=== PATIENT | female | born 1980 | race Caucasian/White ===

== ENCOUNTER 2016-02-21 21:57 | Emergency (ER) | payer BC, MEDICAID ==
--- NOTE | 2016-02-21 22:13 | Emergency Department Record ---
History of Present Illness - General Chief complaint: Abscess Stated complaint: SORE ON UPPER ABD Time Seen by Provider: 02/21/16 22:12 Source: Patient Mode of Arrival: Ambulatory Limitations: No limitations - History of Present Illness Initial comments: The patient is here due to a painful rash on her mid abdomen for 3 days. She denies any trauma, fever, or vomiting. She has had one episode of MRSA in the past. MD complaint: Abscess/boil, Rash Onset/Timin -: Days(s) Hx Tetanus Toxoid Vaccination: Yes Year of Tetanus Vaccination: unknown Severity scale (1-10): 6 Quality: Aching Improves with: None Worsens with: Palpation Treatments Prior to Arrival: Attempted to drain pus at home - Related Data Home Medications Medication Instructions Recorded Confirmed Last Taken Amitriptyline HCl [Elavil] 125 mg PO DAILY 12/09/14 02/21/16 08/29/15 25 MG Levothyroxine Sodium [Synthroid] 150 mcg PO DAILY 12/09/14 02/21/16 08/29/15 150 MCG Metformin HCl [Glucophage Ir] 500 mg PO BID 12/09/14 02/21/16 08/29/15 500 MG Topiramate [Topamax] 150 mg PO DAILY 12/09/14 02/21/16 08/29/15 150 MG Venlafaxine HCl [Effexor Xr] 225 mg PO DAILY 12/09/14 02/21/16 08/29/15 225 MG Ranitidine HCl [Zantac] 75 mg PO DAILY 12/12/14 02/21/16 08/29/15 75 MG Buspirone HCl [Buspar] 15 mg PO BID 04/16/15 02/21/16 08/29/15 15 MG Sumatriptan Succinate [Imitrex] 50 mg PO DAILY PRN 04/16/15 02/21/16 08/29/15 50 MG Previous Rx's Medication Instructions Recorded Ondansetron HCl [Zofran] 4 mg PO TID #7 tablet 08/30/15 Clindamycin HCl [Cleocin HCl] 300 mg PO QID #28 capsule 02/21/16 Naproxen [Naprosyn] 500 mg PO BID #14 tablet. 02/21/16 Allergies Allergy/AdvReac Type Severity Reaction Status Date / Time cephalexin monohydrate Allergy Intermediate HIVES Verified 08/29/15 22:20 [From Keflex] doxycycline Allergy Intermediate HIVES Verified 08/29/15 22:20 Latex, Natural Rubber Allergy Intermediate RASH Verified 08/29/15 22:20 Travel Screening - Travel/Exposure Within Last 30 Days Have you traveled within the last 30 days?: No Review of Systems Constitutional: Denies: Chills, Fever, Other Eyes: Denies: Eye discharge ENT: Denies: Congestion Respiratory: Denies: Cough, Dyspnea Past Medical History - SOCIAL HISTORY Smoking Status: Current every day smoker Alcohol Use: None Drug Use: None - RESPIRATORY Hx Respiratory Disorders: No - CARDIOVASCULAR Hx Cardio Disorders: No - NEURO Hx Neuro Disorders: Yes Hx of Migraines: Yes 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 - GI Hx GI Disorders: Yes Hx Abdominal Pain: Yes (with gallbladder) Hx Reflux: Yes (just recently with gallbladder) Hx Nausea/Vomiting: Yes - Hx Genitourinary Disorders: Yes Comment:: polycystic ovarian disease - ENDOCRINE Hx Endocrine Disorders: Yes Hx Diabetes: Yes (type 2) Hx Thyroid Disease: Yes (hypo) - MUSCULOSKELETAL Hx Musculoskeletal Disorders: No - PSYCH Hx Psych Problems: Yes Hx Anxiety: Yes Hx Depression: Yes - HEMATOLOGY/ONCOLOGY Hx Hematology/Oncology Disorders: No Family Medical History Any Significant Family History?: Yes Hx Cancer: Grandparents Hx Diabetes: Grandparents Hx Heart Disease: Father, Grandparents Physical Exam - General General Appearance: Alert, Oriented x3, Cooperative, No acute distress - Head Head exam: Atraumatic, Normocephalic, Normal inspection - Eye Eye exam: Normal appearance, PERRL - Neck Neck exam: Normal inspection, Full ROM. negative: Tenderness - Respiratory Respiratory exam: Normal lung sounds bilaterally. negative: Respiratory distress - Cardiovascular Cardiovascular Exam: Regular rate, Normal rhythm, Normal heart sounds - GI/Abdominal GI/Abdominal exam: Soft, Normal bowel sounds, Other (There is a 5 x 5 cm area of erythema and mild tenderness in the center over the mid abdominal skin area. There is no fluctuance or drainage from the center. It appears to be a probable MRSA wound but is clearly not ready for I and D.). negative: Guarding, Rigid, Tenderness - Extremities Extremities exam: Normal inspection, Full ROM, Normal capillary refill. negative: Tenderness Image of Full Body: 1 - Area of erythema. Course Vital Signs 02/21/16 22:04 Temperature 97.7 F Pulse Rate [ 103 H Pulse Ox Probe] Respiratory 18 Rate Blood Pressure 135/84 [Left Arm] Pulse Ox 98 - Reevaluation(s) Reevaluation #1: I did discuss with the patient the need for using warm compresses to the area and to take the Abx's and pain medicines. She is to see her PCP if not better early next week or to return to the ER if worse. 02/21/16 22:28 Disposition Disposition: Discharge Clinical Impression: Skin infection Disposition: Home, Self-Care Condition: (1) Good Instructions: Abscess (ED) Additional Instructions: Please use warm compresses on the affected area during the day when possible. Please take the Naprosyn and Clindamycin as directed. Please see your PCP for recheck if not better in 3 days. Return to the ER for any increased pain, swelling, or fever. Prescriptions: Clindamycin HCl [Cleocin HCl] 300 mg PO QID #28 capsule Naproxen [Naprosyn] 500 mg PO BID #14 tablet.dr Forms: Patient Portal Access Time of Disposition: 22:20
[2016-02-21] MEDS ORDERED: CLINDAMYCIN 150 MG CAP PO ONE (22:16)
[2016-02-21] MEDS ORDERED: NAPROXEN 250 MG TABLET PO ONE (22:17)
== END 2016-02-21 22:31 | disposition home or self-care (01) ==
LOC: ER 21:57
DX: L02.211 Cutaneous abscess of abdominal wall (principal); Z86.14 Personal history of Methicillin resistant Staphylococcus aureus infection
CPT/HCPCS: 99282

== ENCOUNTER 2016-05-03 12:03 | Emergency (ER) | payer MEDICAID ==
[2016-05-03] MEDS ORDERED: IPRATROPIUM/ALBUTEROL (0.5MG/3MG) NEB INH ONE (12:34)
[2016-05-03 12:57] LABS: BASO % 0.4 % (0-6); GRAN % 62.6 % (47-80); HEMATOCRIT 44.3 % (35.0-47.0); HEMOGLOBIN 15.6 gm/dl (11.6-16.0); LYMPH % 25.4 % (16-45); MEAN CELL VOLUME 80.8 fl (81-97); MEAN CORPUSCULAR HGB CONC 35.2 g/dl (32-36); MONO % 7.6 % (0-9); PLATELET COUNT 242 K/uL (130-400); RED BLOOD COUNT 5.48 M/uL (3.80-5.40); RED CELL DISTRIBUTION WIDTH 13.4 % (11.5-14.5); WHITE BLOOD COUNT W/O DIFF 7.5 K/uL (4.2-12.2)
[2016-05-03 13:08] LABS: ANION GAP 4.3 (7-16); BLOOD UREA NITROGEN 6 mg/dL (7-17); CARBON DIOXIDE 21.7 mmol/L (22-30); CREATININE 0.7 mg/dL (0.52-1.04); EST GLOMERULAR FILTRATION RATE > 60 ml/min; GLUCOSE,RANDOM 105 mg/dL (70-110); MEAN CORPUSCULAR HEMOGLOBIN 28.4 pg (27-33)
[2016-05-03 13:10] LABS: INFLUENZA A NEGATIVE (NEGATIVE); INFLUENZA B NEGATIVE (NEGATIVE)
--- NOTE | 2016-05-03 13:19 | Emergency Department Record ---
History of Present Illness - General Chief Complaint: Chest Pain Stated Complaint: CHEST HEAVINESS Time Seen by Provider: 05/03/16 12:29 Source: Patient Mode of Arrival: Ambulatory Limitations: No limitations - History of Present Illness Initial Comments: pt has had a cough, heaviness in her chest, congestion for a week. now she is losing her voice. no fevers. cough is prod yellow MD Complaint: Other Onset/Timin -: Days(s) Onset: During exertion, During rest Pain Location: Epigastric Severity: Moderate Severity scale (1-10): 1 Quality: Aching Consistency: Constant Improves With: Nothing Worsens With: Nothing Anginal Symptoms: Dyspnea Other Symptoms: Cough Treatments Prior to Arrival: None - Related Data Home Medications Medication Instructions Recorded Confirmed Last Taken Amitriptyline HCl [Elavil] 125 mg PO DAILY 12/09/14 05/03/16 1 Day Ago Levothyroxine Sodium [Synthroid] 150 mcg PO DAILY 12/09/14 05/03/16 1 Day Ago Metformin HCl [Glucophage Ir] 500 mg PO BID 12/09/14 05/03/16 1 Day Ago Topiramate [Topamax] 150 mg PO DAILY 12/09/14 05/03/16 1 Day Ago Venlafaxine HCl [Effexor Xr] 225 mg PO DAILY 12/09/14 05/03/16 1 Day Ago Ranitidine HCl [Zantac] 75 mg PO DAILY 12/12/14 05/03/16 1 Day Ago Buspirone HCl [Buspar] 15 mg PO BID 04/16/15 05/03/16 1 Day Ago Sumatriptan Succinate [Imitrex] 50 mg PO DAILY PRN 04/16/15 05/03/16 1 Day Ago Previous Rx's Medication Instructions Recorded Ondansetron HCl [Zofran] 4 mg PO TID #7 tablet 08/30/15 Naproxen [Naprosyn] 500 mg PO BID #14 tablet. 02/21/16 Azithromycin [Zithromax] 250 mg PO DAILY #6 tab 05/03/16 Allergies Allergy/AdvReac Type Severity Reaction Status Date / Time cephalexin monohydrate Allergy Intermediate HIVES Verified 05/03/16 12:18 [From Keflex] doxycycline Allergy Intermediate HIVES Verified 05/03/16 12:18 Latex, Natural Rubber Allergy Intermediate RASH Verified 05/03/16 12:18 Travel Screening - Travel/Exposure Within Last 30 Days Have you traveled within the last 30 days?: No - Travel/Exposure Within Last Year Have you traveled outside the [place] in the last year?: No - Additonal Travel Details Have you been exposed to anyone with a communicable illness?: No - Travel Symptoms Symptom Screening: None Review of Systems Reviewed: No additional complaints except as noted below Constitutional: Reports: As per HPI. Denies: Chills, Fever, Malaise, Night sweats, Weakness, Weight change Eyes: Reports: As per HPI. Denies: Eye discharge, Eye pain, Photophobia, Vision change ENT: Reports: As per HPI. Denies: Congestion, Dental pain, Ear pain, Epistaxis , Hearing loss, Throat pain Respiratory: Reports: As per HPI. Denies: Cough, Dyspnea, Hemoptysis, Stridor, Wheezes Cardiovascular: Reports: As per HPI. Denies: Arrhythmia, Chest pain, Dyspnea on exertion, Edema, Murmurs, Orthopnea, Palpitations, Paroxysmal nocturnal dyspnea, Rheumatic Fever, Syncope Endocrine: Reports: As per HPI. Denies: Fatigue, Heat or cold intolerance, Polydipsia, Polyuria Gastrointestinal: Reports: As per HPI. Denies: Abdominal pain, Constipation, Diarrhea, Hematemesis, Hematochezia, Melena, Nausea, Vomiting Genitourinary: Reports: As per HPI. Denies: Abnormal menses, Discharge, Dyspareunia, Dysuria, Frequency, Hematuria, Incontinence, Retention, Urgency Musculoskeletal: Reports: As per HPI. Denies: Arthralgia, Back pain, Gout, Joint swelling, Myalgia, Neck pain Skin: Reports: As per HPI. Denies: Bruising, Change in color, Change in hair/ nails, Lesions, Pruritus, Rash Neurological: Reports: As per HPI. Denies: Abnormal gait, Confusion, Headache, Numbness, Paresthesias, Seizure, Tingling, Tremors, Vertigo, Weakness Psychiatric: Reports: As per HPI. Denies: Anxiety, Auditory hallucinations, Depression, Homicidal thoughts, Suicidal thoughts, Visual hallucinations Hematological/Lymphatic: Reports: As per HPI. 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 - GI Hx GI Disorders: Yes Hx Abdominal Pain: Yes (with gallbladder) Hx Reflux: Yes (just recently with gallbladder) Hx Nausea/Vomiting: Yes - Hx Genitourinary Disorders: Yes Comment:: polycystic ovarian disease - ENDOCRINE Hx Endocrine Disorders: Yes Hx Diabetes: Yes (type 2) Hx Thyroid Disease: Yes (hypo) - MUSCULOSKELETAL Hx Musculoskeletal Disorders: No - PSYCH Hx Psych Problems: Yes Hx Anxiety: Yes Hx Depression: Yes - HEMATOLOGY/ONCOLOGY Hx Hematology/Oncology Disorders: No Family Medical History Any Significant Family History?: Yes Hx Cancer: Grandparents Hx Diabetes: Grandparents Hx Heart Disease: Father, Grandparents Physical Exam - General General Appearance: Alert, Oriented x3, Cooperative, Mild distress - Head Head exam: Normal inspection - Eye Eye exam: Normal appearance, PERRL, EOMI Pupils: Normal accommodation - ENT ENT exam: Normal exam, Mucous membranes moist, Normal external ear exam, Normal orophraynx Ear exam: Normal external inspection. negative: External canal tenderness Nasal Exam: Normal inspection. negative: Discharge, Sinus tenderness Mouth exam: Normal external inspection, Tongue normal Teeth exam: Normal inspection. negative: Dental caries Throat exam: Normal inspection. negative: Tonsillar erythema, Tonsillar exudate - Neck Neck exam: Normal inspection, Full ROM. negative: Tenderness - Respiratory Respiratory exam: Normal lung sounds bilaterally, Wheezes (slight). negative: Respiratory distress - Cardiovascular Cardiovascular Exam: Regular rate, Normal rhythm, Normal heart sounds - GI/Abdominal GI/Abdominal exam: Soft, Normal bowel sounds. negative: Tenderness - Rectal Rectal exam: Deferred - exam: Deferred - Extremities Extremities exam: Normal inspection, Full ROM, Normal capillary refill. negative: Tenderness - Back Back exam: Reports: Normal inspection, Full ROM. Denies: Muscle spasm, Rash noted, Tenderness - Neurological Neurological exam: Alert, CN II-XII intact, Normal gait, Oriented X3 - Psychiatric Psychiatric exam: Normal affect, Normal mood - Skin Skin exam: Dry, Intact, Normal color, Warm Course Vital Signs 05/03/16 12:12 Temperature 97.9 F Pulse Rate 87 Respiratory 20 Rate Blood Pressure 148/106 Pulse Ox 98 Medical Decision Making - Lab Data Result diagrams: 05/03/16 12:47 05/03/16 12:47 Lab Results 05/03/16 05/03/16 05/03/16 Range/Units 12:47 12:47 12:47 WBC 7.5 (4.2-12.2) K/uL RBC 5.48 H (3.80-5.40) M/uL Hgb 15.6 (11.6-16.0) gm/dl Hct 44.3 (35.0-47.0) % MCV 80.8 L (81-97) fl MCH 28.4 (27-33) pg MCHC 35.2 (32-36) g/dl RDW 13.4 (11.5-14.5) % Plt Count 242 (130-400) K/uL MPV 10.0 (7.4-10.4) fl Gran % 62.6 (47-80) % Lymphocytes % 25.4 (16-45) % Monocytes % 7.6 (0-9) % Eosinophils % 4.0 (0-6) % Basophils % 0.4 (0-6) % Sodium 139 (136-145) mmol/L Potassium 3.5 (3.5-5.1) mmol/L Chloride 113 H (98-107) mmol/L Carbon Dioxide 21.7 L (22-30) mmol/L Anion Gap 4.3 L (7-16) BUN 6 L (7-17) mg/dL Creatinine 0.7 (0.52-1.04) mg/dL Estimated GFR > 60 ml/min Random Glucose 105 (70-110) mg/dL Calcium 8.8 (8.5-10.1) mg/dL Influenza Type A Ag Negative (NEGATIVE) Influenza Type B Ag Negative (NEGATIVE) Disposition Disposition: Discharge Clinical Impression: Bronchitis Disposition: Home, Self-Care Condition: (1) Good Instructions: Acute Bronchitis (ED) Additional Instructions: follow up with family doctor. return sooner if worse Prescriptions: Azithromycin [Zithromax] 250 mg PO DAILY #6 tab Forms: Patient Portal Access
[2016-05-03 13:20] LABS: TROPONIN I < 0.012 ng/mL (0.00-0.034)
--- NOTE | 2016-05-03 14:12 | Emergency Department Record ---
History of Present Illness - General Chief Complaint: Chest Pain Stated Complaint: CHEST HEAVINESS Time Seen by Provider: 05/03/16 12:29 Source: Patient Mode of Arrival: Ambulatory Limitations: No limitations - History of Present Illness Onset/Timin -: Days(s) Onset: During exertion, During rest Pain Location: Epigastric Severity: Moderate Severity scale (1-10): 1 Quality: Aching Consistency: Constant Improves With: Nothing Worsens With: Nothing Anginal Symptoms: Dyspnea Other Symptoms: Cough Treatments Prior to Arrival: None - Related Data Home Medications Medication Instructions Recorded Confirmed Last Taken Amitriptyline HCl [Elavil] 125 mg PO DAILY 12/09/14 05/03/16 1 Day Ago Levothyroxine Sodium [Synthroid] 150 mcg PO DAILY 12/09/14 05/03/16 1 Day Ago Metformin HCl [Glucophage Ir] 500 mg PO BID 12/09/14 05/03/16 1 Day Ago Topiramate [Topamax] 150 mg PO DAILY 12/09/14 05/03/16 1 Day Ago Venlafaxine HCl [Effexor Xr] 225 mg PO DAILY 12/09/14 05/03/16 1 Day Ago Ranitidine HCl [Zantac] 75 mg PO DAILY 12/12/14 05/03/16 1 Day Ago Buspirone HCl [Buspar] 15 mg PO BID 04/16/15 05/03/16 1 Day Ago Sumatriptan Succinate [Imitrex] 50 mg PO DAILY PRN 04/16/15 05/03/16 1 Day Ago Previous Rx's Medication Instructions Recorded Ondansetron HCl [Zofran] 4 mg PO TID #7 tablet 08/30/15 Naproxen [Naprosyn] 500 mg PO BID #14 tablet. 02/21/16 Azithromycin [Zithromax] 250 mg PO DAILY #6 tab 05/03/16 Allergies Allergy/AdvReac Type Severity Reaction Status Date / Time cephalexin monohydrate Allergy Intermediate HIVES Verified 05/03/16 12:18 [From Keflex] doxycycline Allergy Intermediate HIVES Verified 05/03/16 12:18 Latex, Natural Rubber Allergy Intermediate RASH Verified 05/03/16 12:18 Travel Screening - Travel/Exposure Within Last 30 Days Have you traveled within the last 30 days?: No - Travel/Exposure Within Last Year Have you traveled outside the [place] in the last year?: No - Additonal Travel Details Have you been exposed to anyone with a communicable illness?: No - Travel Symptoms Symptom Screening: None Review of Systems Constitutional: Reports: As per HPI. Denies: Chills, Fever, Malaise, Night sweats, Weakness, Weight change Eyes: Reports: As per HPI. Denies: Eye discharge, Eye pain, Photophobia, Vision change ENT: Reports: As per HPI. Denies: Congestion, Dental pain, Ear pain, Epistaxis , Hearing loss, Throat pain Respiratory: Reports: As per HPI. Denies: Cough, Dyspnea, Hemoptysis, Stridor, Wheezes Cardiovascular: Reports: As per HPI. Denies: Arrhythmia, Chest pain, Dyspnea on exertion, Edema, Murmurs, Orthopnea, Palpitations, Paroxysmal nocturnal dyspnea, Rheumatic Fever, Syncope Endocrine: Reports: As per HPI. Denies: Fatigue, Heat or cold intolerance, Polydipsia, Polyuria Gastrointestinal: Reports: As per HPI. Denies: Abdominal pain, Constipation, Diarrhea, Hematemesis, Hematochezia, Melena, Nausea, Vomiting Genitourinary: Reports: As per HPI. Denies: Abnormal menses, Discharge, Dyspareunia, Dysuria, Frequency, Hematuria, Incontinence, Retention, Urgency Musculoskeletal: Reports: As per HPI. Denies: Arthralgia, Back pain, Gout, Joint swelling, Myalgia, Neck pain Skin: Reports: As per HPI. Denies: Bruising, Change in color, Change in hair/ nails, Lesions, Pruritus, Rash Neurological: Reports: As per HPI. Denies: Abnormal gait, Confusion, Headache, Numbness, Paresthesias, Seizure, Tingling, Tremors, Vertigo, Weakness Psychiatric: Reports: As per HPI. Denies: Anxiety, Auditory hallucinations, Depression, Homicidal thoughts, Suicidal thoughts, Visual hallucinations Hematological/Lymphatic: Reports: As per HPI. 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 - GI Hx GI Disorders: Yes Hx Abdominal Pain: Yes (with gallbladder) Hx Reflux: Yes (just recently with gallbladder) Hx Nausea/Vomiting: Yes - Hx Genitourinary Disorders: Yes Comment:: polycystic ovarian disease - ENDOCRINE Hx Endocrine Disorders: Yes Hx Diabetes: Yes (type 2) Hx Thyroid Disease: Yes (hypo) - MUSCULOSKELETAL Hx Musculoskeletal Disorders: No - PSYCH Hx Psych Problems: Yes Hx Anxiety: Yes Hx Depression: Yes - HEMATOLOGY/ONCOLOGY Hx Hematology/Oncology Disorders: No Family Medical History Any Significant Family History?: Yes Hx Cancer: Grandparents Hx Diabetes: Grandparents Hx Heart Disease: Father, Grandparents Physical Exam - General Limitations: No limitations Course Vital Signs 05/03/16 12:12 Temperature 97.9 F Pulse Rate 87 Respiratory 20 Rate Blood Pressure 148/106 Pulse Ox 98 - Reevaluation(s) Reevaluation #1: 05/03/16 14:11 pt is no longer taking zofran Medical Decision Making - Lab Data Result diagrams: 05/03/16 12:47 05/03/16 12:47 Lab Results 05/03/16 05/03/16 05/03/16 Range/Units 12:47 12:47 12:47 WBC 7.5 (4.2-12.2) K/uL RBC 5.48 H (3.80-5.40) M/uL Hgb 15.6 (11.6-16.0) gm/dl Hct 44.3 (35.0-47.0) % MCV 80.8 L (81-97) fl MCH 28.4 (27-33) pg MCHC 35.2 (32-36) g/dl RDW 13.4 (11.5-14.5) % Plt Count 242 (130-400) K/uL MPV 10.0 (7.4-10.4) fl Gran % 62.6 (47-80) % Lymphocytes % 25.4 (16-45) % Monocytes % 7.6 (0-9) % Eosinophils % 4.0 (0-6) % Basophils % 0.4 (0-6) % Sodium 139 (136-145) mmol/L Potassium 3.5 (3.5-5.1) mmol/L Chloride 113 H (98-107) mmol/L Carbon Dioxide 21.7 L (22-30) mmol/L Anion Gap 4.3 L (7-16) BUN 6 L (7-17) mg/dL Creatinine 0.7 (0.52-1.04) mg/dL Estimated GFR > 60 ml/min Random Glucose 105 (70-110) mg/dL Calcium 8.8 (8.5-10.1) mg/dL Troponin I < 0.012 (0.00-0.034) ng/mL Influenza Type A Ag Negative (NEGATIVE) Influenza Type B Ag Negative (NEGATIVE) Disposition Clinical Impression: Bronchitis Disposition: Home, Self-Care Condition: (1) Good Instructions: Acute Bronchitis (ED) Additional Instructions: follow up with family doctor. return sooner if worse Prescriptions: Azithromycin [Zithromax] 250 mg PO DAILY #6 tab Forms: Patient Portal Access
--- NOTE | 2016-05-07 10:45 | RADIOLOGY REPORT ---
EXAM: CHEST, TWO VIEWS HISTORY: CHEST PRESSURE AND HOARSENESS. TECHNIQUE: Upright PA and lateral views of the chest were obtained. Comparison: None. FINDINGS: The cardiomediastinal silhouette is normal in size and configuration. The pulmonary vasculature is nondilated. The lungs and pleural spaces are clear. The osseous structures are intact. IMPRESSION: NO RADIOGRAPHIC EVIDENCE OF ACUTE CARDIOPULMONARY DISEASE. JOB NUMBER: [id number] MTDD
== END 2016-05-03 14:21 | disposition home or self-care (01) ==
LOC: ER 12:03
DX: R07.89 Other chest pain (principal); J20.9 Acute bronchitis, unspecified; R06.00 Dyspnea, unspecified; R10.13 Epigastric pain; F17.210 Nicotine dependence, cigarettes, uncomplicated
CPT/HCPCS: 71020; 80048; 84484; 85025; 87400; 93005; 93010; 94640; 99284

== ENCOUNTER 2016-05-17 21:08 | Emergency (ER) | payer MEDICAID ==
--- NOTE | 2016-05-17 21:32 | Emergency Department Record ---
History of Present Illness - General Chief complaint: ENT Stated complaint: SORE THROAT Time Seen by Provider: 05/17/16 21:26 Source: Patient Mode of Arrival: Ambulatory Limitations: No limitations - History of Present Illness Initial comments: 35 yo female presents to ED with a CC of sore throat x 1 day, denies fever, but reports chills and non-productive cough. Patient reports recent contact with a family member diagnosed with strep throat. Patient denies health problems at her baseline. MD complaint: Sore throat Onset/Timin -: Days(s) Severity: Moderate Quality: Aching Consistency: Constant Improves with: None Worsens with: None Associated Symptoms: Sore throat - Related Data Home Medications Medication Instructions Recorded Confirmed Last Taken Amitriptyline HCl [Elavil] 125 mg PO DAILY 12/09/14 05/17/16 1 Day Ago Levothyroxine Sodium [Synthroid] 150 mcg PO DAILY 12/09/14 05/17/16 1 Day Ago Metformin HCl [Glucophage Ir] 500 mg PO BID 12/09/14 05/17/16 1 Day Ago Topiramate [Topamax] 150 mg PO DAILY 12/09/14 05/17/16 1 Day Ago Venlafaxine HCl [Effexor Xr] 225 mg PO DAILY 12/09/14 05/17/16 1 Day Ago Ranitidine HCl [Zantac] 75 mg PO DAILY 12/12/14 05/17/16 1 Day Ago Buspirone HCl [Buspar] 15 mg PO BID 04/16/15 05/17/16 1 Day Ago Sumatriptan Succinate [Imitrex] 50 mg PO DAILY PRN 04/16/15 05/17/16 1 Day Ago Ondansetron HCl [Zofran] 4 mg PO TID PRN 05/17/16 05/17/16 Unknown Allergies Allergy/AdvReac Type Severity Reaction Status Date / Time cephalexin monohydrate Allergy Intermediate HIVES Verified 05/03/16 12:18 [From Keflex] doxycycline Allergy Intermediate HIVES Verified 05/03/16 12:18 Latex, Natural Rubber Allergy Intermediate RASH Verified 05/03/16 12:18 Review of Systems Constitutional: Reports: Chills. Denies: Fever, Malaise, Night sweats Eyes: Denies: Eye discharge, Eye pain ENT: Reports: Congestion. Denies: Ear pain, Epistaxis Respiratory: Reports: Cough. Denies: Hemoptysis Cardiovascular: Denies: Chest pain, Dyspnea on exertion Endocrine: Denies: Fatigue, Heat or cold intolerance Gastrointestinal: Denies: Abdominal pain, Nausea, Vomiting Genitourinary: Denies: Dysuria, Frequency, Hematuria Musculoskeletal: Denies: Arthralgia, Back pain, Gout, Joint swelling Skin: Denies: Bruising, Change in color, Change in hair/nails Neurological: Denies: Abnormal gait, Confusion, Headache, Seizure Psychiatric: Denies: Anxiety Hematological/Lymphatic: Denies: Anemia, Blood Clots Past Medical History - SOCIAL HISTORY Smoking Status: Current every day smoker Drug Use: None - RESPIRATORY Hx Respiratory Disorders: No - CARDIOVASCULAR Hx Cardio Disorders: No - NEURO Hx Neuro Disorders: Yes Hx of Migraines: Yes 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 - GI Hx GI Disorders: Yes Hx Abdominal Pain: Yes (with gallbladder) Hx Reflux: Yes (just recently with gallbladder) Hx Nausea/Vomiting: Yes - Hx Genitourinary Disorders: Yes Comment:: polycystic ovarian disease - ENDOCRINE Hx Endocrine Disorders: Yes Hx Diabetes: Yes (type 2) Hx Thyroid Disease: Yes (hypo) - MUSCULOSKELETAL Hx Musculoskeletal Disorders: No - PSYCH Hx Psych Problems: Yes Hx Anxiety: Yes Hx Depression: Yes - HEMATOLOGY/ONCOLOGY Hx Hematology/Oncology Disorders: No Family Medical History Hx Cancer: Grandparents Hx Diabetes: Grandparents Hx Heart Disease: Father, Grandparents Physical Exam - General General Appearance: Alert, Oriented x3, Cooperative, No acute distress Limitations: No limitations - Head Head exam: Atraumatic, Normocephalic, Normal inspection Head exam detail: negative: Abrasion, Contusion, Turner's sign, General tenderness, Hematoma, Laceration - Eye Eye exam: Normal appearance. negative: Conjunctival injection, Periorbital swelling, Periorbital tenderness, Scleral icterus - ENT Ear exam: negative: Auricular hematoma, Auricular trauma Nasal Exam: negative: Active bleeding, Discharge, Dried blood, Foreign body Mouth exam: negative: Drooling, Laceration, Muffled voice, Tongue elevation Throat exam: negative: Tonsillar erythema, Tonsillomegaly, R peritonsillar mass , L peritonsillar mass - Neck Neck exam: Normal inspection. negative: Meningismus, Tenderness - Respiratory Respiratory exam: Normal lung sounds bilaterally. negative: Rales, Respiratory distress, Rhonchi, Stridor - Cardiovascular Cardiovascular Exam: Regular rate, Normal rhythm, Normal heart sounds - GI/Abdominal GI/Abdominal exam: Soft. negative: Rebound, Rigid, Tenderness - Rectal Rectal exam: Deferred - exam: Deferred - Extremities Extremities exam: Normal inspection. negative: Calf tenderness, Pedal edema, Tenderness - Back Back exam: Denies: CVA tenderness (R), CVA tenderness (L) - Neurological Neurological exam: Alert, Normal gait, Oriented X3 - Psychiatric Psychiatric exam: Normal affect, Normal mood - Skin Skin exam: Normal color. negative: Abrasion Type of lesion: negative: abrasion Course - Reevaluation(s) Reevaluation #1: 05/17/16 22:31 Influenza: negative Strep: Negative. Patient was updated on all results, symptoms appear c/w viral pharyngitis. Patient appears stable for discharge with symptomatic care for her pharyngitis symptoms. Disposition Disposition: Discharge Clinical Impression: Viral Pharyngitis Disposition: Home, Self-Care Condition: (2) Stable Instructions: Pharyngitis (ED) Additional Instructions: Return to ED if your symptoms worsen or if you have any concerns. Tylenol/Motrin for your symptoms. Follow-up with you family doctor in 3-5 days as directed. Forms: Patient Portal Access Time of Disposition: 22:33
[2016-05-17 22:02] LABS: INFLUENZA A NEGATIVE (NEGATIVE); INFLUENZA B NEGATIVE (NEGATIVE)
== END 2016-05-17 22:39 | disposition home or self-care (01) ==
LOC: ER 21:08
DX: J02.9 Acute pharyngitis, unspecified (principal); F17.200 Nicotine dependence, unspecified, uncomplicated
CPT/HCPCS: 87400; 87880; 99282

== ENCOUNTER 2016-07-02 07:09 | Emergency (ER) | payer MEDICAID ==
[2016-07-02 07:28] LABS: HCG,QUALITATIVE URINE NEGATIVE (NEGATIVE); URINE APPEARANCE CLEAR; URINE BILIRUBIN NEGATIVE (NEGATIVE); URINE BLOOD NEGATIVE (NEGATIVE); URINE COLOR YELLOW; URINE GLUCOSE (UA) NEGATIVE (NEGATIVE); URINE KETONE NEGATIVE (NEGATIVE); URINE LEUKOCYTE ESTERASE NEGATIVE (NEGATIVE); URINE NITRITE NEGATIVE (NEGATIVE); URINE PROTEIN NEGATIVE (NEGATIVE)
--- NOTE | 2016-07-02 07:47 | Emergency Department Record ---
History of Present Illness - General Chief complaint: Nausea, Vomiting, Diarrhea Stated complaint: N/V/D Time Seen by Provider: 07/02/16 07:36 Source: Patient, RN notes reviewed Mode of Arrival: Ambulatory - History of Present Illness Initial comments: cough and nausea for one week and 24 hours ago stated vomiting times 4 and diarrhea times 3 and left sided abdominal pain. History of cholecstectomy one year ago and no family members sick and she smokes cigs. coarse cough. Onset/Timin -: Week(s) Description of Vomiting: Food contents, Watery Description of Diarrhea: Water Associated Abdominal Pain: Yes Location: Other Severity: Moderate Severity scale (1-10): 8 Quality: Sharp, Stabbing Consistency: Intermittent Improves with: None Worsens with: None Associated Symptoms: Nausea/vomiting - Related Data Home Medications Medication Instructions Recorded Confirmed Last Taken Amitriptyline HCl [Elavil] 125 mg PO DAILY 12/09/14 07/02/16 1 Day Ago ~05/02/16 Levothyroxine Sodium [Synthroid] 150 mcg PO DAILY 12/09/14 07/02/16 1 Day Ago ~05/02/16 Metformin HCl [Glucophage Ir] 500 mg PO BID 12/09/14 07/02/16 1 Day Ago ~05/02/16 Topiramate [Topamax] 150 mg PO DAILY 12/09/14 07/02/16 1 Day Ago ~05/02/16 Venlafaxine HCl [Effexor Xr] 225 mg PO DAILY 12/09/14 07/02/16 1 Day Ago ~05/02/16 Sumatriptan Succinate [Imitrex] 50 mg PO DAILY PRN 04/16/15 07/02/16 1 Day Ago ~05/02/16 Ondansetron HCl [Zofran] 4 mg PO TID PRN 05/17/16 07/02/16 Unknown Previous Rx's Medication Instructions Recorded Ondansetron HCl [Zofran] 4 mg PO Q6HR #10 tablet 07/02/16 Allergies Allergy/AdvReac Type Severity Reaction Status Date / Time cephalexin monohydrate Allergy Intermediate HIVES Verified 07/02/16 07:18 [From Keflex] doxycycline Allergy Intermediate HIVES Verified 07/02/16 07:18 Latex, Natural Rubber Allergy Intermediate RASH Verified 07/02/16 07:18 Travel Screening - Travel/Exposure Within Last 30 Days Have you traveled within the last 30 days?: No - Travel/Exposure Within Last Year Have you traveled outside the [place] in the last year?: No - Additonal Travel Details Have you been exposed to anyone with a communicable illness?: No - Travel Symptoms Symptom Screening: None Review of Systems Reviewed: No additional complaints except as noted below Constitutional: Reports: As per HPI. Denies: Chills, Fever, Malaise, Night sweats, Weakness, Weight change Eyes: Reports: As per HPI. Denies: Eye discharge, Eye pain, Photophobia, Vision change ENT: Reports: As per HPI. Denies: Congestion, Dental pain, Ear pain, Epistaxis , Hearing loss, Throat pain Respiratory: Reports: As per HPI, Cough. Denies: Dyspnea, Hemoptysis, Stridor, Wheezes Cardiovascular: Reports: As per HPI. Denies: Arrhythmia, Chest pain, Dyspnea on exertion, Edema, Murmurs, Orthopnea, Palpitations, Paroxysmal nocturnal dyspnea, Rheumatic Fever, Syncope Endocrine: Reports: As per HPI. Denies: Fatigue, Heat or cold intolerance, Polydipsia, Polyuria Gastrointestinal: Reports: As per HPI, Abdominal pain (left sided), Diarrhea, Nausea, Vomiting. Denies: Constipation, Hematemesis, Hematochezia, Melena Genitourinary: Reports: As per HPI. Denies: Abnormal menses, Discharge, Dyspareunia, Dysuria, Frequency, Hematuria, Incontinence, Retention, Urgency Musculoskeletal: Reports: As per HPI. Denies: Arthralgia, Back pain, Gout, Joint swelling, Myalgia, Neck pain Skin: Reports: As per HPI. Denies: Bruising, Change in color, Change in hair/ nails, Lesions, Pruritus, Rash Neurological: Reports: As per HPI. Denies: Abnormal gait, Confusion, Headache, Numbness, Paresthesias, Seizure, Tingling, Tremors, Vertigo, Weakness Psychiatric: Reports: As per HPI. Denies: Anxiety, Auditory hallucinations, Depression, Homicidal thoughts, Suicidal thoughts, Visual hallucinations Hematological/Lymphatic: Reports: As per HPI. 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 - GI Hx GI Disorders: Yes Hx Abdominal Pain: Yes (with gallbladder) Hx Reflux: Yes (just recently with gallbladder) Hx Nausea/Vomiting: Yes - Hx Genitourinary Disorders: Yes Comment:: polycystic ovarian disease - ENDOCRINE Hx Endocrine Disorders: Yes Hx Diabetes: Yes (type 2) Hx Thyroid Disease: Yes (hypo) - MUSCULOSKELETAL Hx Musculoskeletal Disorders: No - PSYCH Hx Psych Problems: Yes Hx Anxiety: Yes Hx Depression: Yes - HEMATOLOGY/ONCOLOGY Hx Hematology/Oncology Disorders: No Family Medical History Any Significant Family History?: Yes Hx Cancer: Grandparents Hx Diabetes: Grandparents Hx Heart Disease: Father, Grandparents Physical Exam - General General Appearance: Alert, Oriented x3, Cooperative, Mild distress - Head Head exam: Normal inspection - Eye Eye exam: Normal appearance, PERRL Pupils: Normal accommodation - ENT ENT exam: Normal exam, Mucous membranes moist, Normal external ear exam, Normal orophraynx, TM's normal bilaterally Ear exam: Normal external inspection. negative: External canal tenderness Nasal Exam: Normal inspection. negative: Discharge, Sinus tenderness Mouth exam: Normal external inspection, Tongue normal Teeth exam: Normal inspection. negative: Dental caries Throat exam: Normal inspection. negative: Tonsillar erythema, Tonsillar exudate - Neck Neck exam: Normal inspection, Full ROM. negative: Tenderness - Respiratory Respiratory exam: Normal lung sounds bilaterally. negative: Respiratory distress - Cardiovascular Cardiovascular Exam: Regular rate, Normal rhythm, Normal heart sounds - GI/Abdominal GI/Abdominal exam: Soft, Normal bowel sounds. negative: Tenderness - Rectal Rectal exam: Deferred - exam: Deferred - Extremities Extremities exam: Normal inspection, Full ROM, Normal capillary refill. negative: Tenderness - Back Back exam: Reports: Normal inspection, Full ROM. Denies: Muscle spasm, Rash noted, Tenderness - Neurological Neurological exam: Alert, Normal gait, Oriented X3, Reflexes normal - Psychiatric Psychiatric exam: Normal affect, Normal mood - Skin Skin exam: Dry, Intact, Normal color, Warm Course Vital Signs 07/02/16 07:21 Temperature 97.7 F Pulse Rate 94 H Respiratory 20 Rate Blood Pressure 124/77 Pulse Ox 99 Medical Decision Making - Lab Data Result diagrams: 07/02/16 07:30 07/02/16 07:30 Lab Results 07/02/16 Range/Units 07:20 Urine Color Yellow Urine Appearance Clear Urine pH 7.0 (5.0-8.0) Ur Specific [place] 1.015 (1.002-1.030) Urine Protein Negative (NEGATIVE) Urine Glucose (UA) Negative (NEGATIVE) Urine Ketones Negative (NEGATIVE) Urine Blood Negative (NEGATIVE) Urine Nitrite Negative (NEGATIVE) Urine Bilirubin Negative (NEGATIVE) Urine Urobilinogen 1.0 (0.20 - 1.00) E.U./dL Ur Leukocyte Esterase Negative (NEGATIVE) Urine HCG, Qual Negative (NEGATIVE) Disposition Clinical Impression: Gastroenteritis, Gastroenteritis Vomiting Qualifiers: Vomiting type: unspecified Vomiting Intractability: non-intractable Nausea presence: with nausea Qualified Code(s): R11.2 - Nausea with vomiting, unspecified Diarrhea Qualifiers: Diarrhea type: unspecified type Qualified Code(s): R19.7 - Diarrhea, unspecified Disposition: Home, Self-Care Condition: (1) Good Instructions: Acute Nausea and Vomiting (ED), Gastroenteritis (ED) Additional Instructions: nothing by mouth for 12 hours than clear liquids for 24 hours recheck tomorrow if not improving at the ED or judy [facility] office. Prescriptions: Ondansetron HCl [Zofran] 4 mg PO Q6HR #10 tablet Forms: Patient Portal Access Time of Disposition: 09:28
[2016-07-02] MEDS: 0.9 % SODIUM CHLORIDE 1,000 ML BAG IV ONE (07:57)
[2016-07-02] MEDS: ONDANSETRON HCL IV 4 MG/2 ML VIAL IVP ONE (07:57)
[2016-07-02 08:14] LABS: BASO % 0.3 % (0-6); EOS % 2.1 % (0-6); GRAN % 67.4 % (47-80); HEMATOCRIT 46.1 % (35.0-47.0); HEMOGLOBIN 15.9 gm/dl (11.6-16.0); LYMPH % 21.6 % (16-45); MEAN CELL VOLUME 80.3 fl (81-97); MEAN CORPUSCULAR HEMOGLOBIN 27.7 pg (27-33); MEAN CORPUSCULAR HGB CONC 34.5 g/dl (32-36); MEAN PLATELET VOLUME 10.5 fl (7.4-10.4); MONO % 8.6 % (0-9); PLATELET COUNT 266 K/uL (130-400); RED BLOOD COUNT 5.74 M/uL (3.80-5.40); RED CELL DISTRIBUTION WIDTH 13.6 % (11.5-14.5); WHITE BLOOD COUNT W/O DIFF 9.5 K/uL (4.2-12.2)
[2016-07-02 08:24] LABS: ALBUMIN 4.2 gm/dL (3.5-5.0); ALKALINE PHOSPHATASE 98 U/L (38-126); ALT/SGPT 26 U/L (9-52); ANION GAP 7.3 (7-16); AST/SGOT 17 U/L (14-36); BLOOD UREA NITROGEN 9 mg/dL (7-17); CARBON DIOXIDE 20.7 mmol/L (22-30); CREATININE 0.8 mg/dL (0.52-1.04); EST GLOMERULAR FILTRATION RATE > 60 ml/min; GLUCOSE,RANDOM 97 mg/dL (70-110); LIPASE 89 U/L (23-300); TOTAL PROTEIN 7.1 gm/dL (6.3-8.2)
[2016-07-02 08:26] LABS: INFLUENZA A NEGATIVE (NEGATIVE); INFLUENZA B NEGATIVE (NEGATIVE)
== END 2016-07-02 10:19 | disposition home or self-care (01) ==
LOC: ER 07:09
DX: K52.9 Noninfective gastroenteritis and colitis, unspecified (principal); R11.2 Nausea with vomiting, unspecified
CPT/HCPCS: 99284 ×2; 96374; 83690; 85025; 80076; 80048; 81003; 81025; 87400; 74022; J2405; J7030

== ENCOUNTER 2018-10-04 07:15 | Emergency (ER) | payer MEDICAID ==
--- NOTE | 2018-10-04 07:50 | Emergency Department Record ---
History of Present Illness - General Chief complaint: Abscess Stated complaint: BUMP IN GROIN Time Seen by Provider: 10/04/18 07:47 Source: Patient Mode of Arrival: Ambulatory Limitations: No limitations - History of Present Illness Initial comments: Pt with "bump" to right groin over past few days. "I picked at it at home and only a little blood came out". No fever. No DM. No hx similar. "It is tender when I move". Onset/Timin -: Days(s) Hx Tetanus Toxoid Vaccination: Yes Year of Tetanus Vaccination: unknown Severity: Mild Severity scale (1-10): 4 Quality: Aching Consistency: Constant Improves with: None Worsens with: None Context: None Associated symptoms: Denies other symptoms Treatments Prior to Arrival: None - Related Data Home Medications Medication Instructions Recorded Confirmed Last Taken Buspirone HCl [Buspar] 30 mg PO BID 10/04/18 10/04/18 Unknown Cyclobenzaprine HCl [Flexeril] 10 mg PO QHS 10/04/18 10/04/18 Unknown Duloxetine HCl [Cymbalta] 30 mg PO QHS 10/04/18 10/04/18 Unknown Trazodone HCl 50 mg PO QHS 10/04/18 10/04/18 Unknown Previous Rx's Medication Instructions Recorded Sulfamethoxazole/Trimethoprim 1 each PO BID 7 Days #14 tablet 10/04/18 [Bactrim Ds Tablet] Allergies Allergy/AdvReac Type Severity Reaction Status Date / Time cephalexin monohydrate Allergy Intermediate HIVES Verified 10/04/18 07:27 [From Keflex] doxycycline Allergy Intermediate HIVES Verified 10/04/18 07:27 Latex, Natural Rubber Allergy Intermediate RASH Verified 10/04/18 07:27 Travel Screening - Travel/Exposure Within Last 30 Days Have you traveled within the last 30 days?: No Review of Systems Constitutional: Denies: Chills, Fever Eyes: Denies: Eye discharge ENT: Denies: Congestion Respiratory: Denies: Cough Cardiovascular: Denies: Arrhythmia Endocrine: Denies: Fatigue, Polydipsia, Polyuria Gastrointestinal: Denies: Abdominal pain, Nausea, Vomiting Musculoskeletal: Denies: Arthralgia, Back pain Psychiatric: Denies: Anxiety Hematological/Lymphatic: Denies: Anemia Past Medical History - SOCIAL HISTORY Smoking Status: Current every day smoker Alcohol Use: None Drug Use: None - RESPIRATORY Hx Respiratory Disorders: No - CARDIOVASCULAR Hx Cardio Disorders: No - NEURO Hx Neuro Disorders: Yes Hx of Migraines: Yes 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 - GI Hx GI Disorders: Yes Hx Abdominal Pain: Yes Hx Reflux: Yes Hx Nausea/Vomiting: Yes - Hx Genitourinary Disorders: Yes Comment:: polycystic ovarian disease - ENDOCRINE Hx Endocrine Disorders: Yes Hx Thyroid Disease: Yes (hypo) - MUSCULOSKELETAL Hx Musculoskeletal Disorders: No - PSYCH Hx Psych Problems: Yes Hx Anxiety: Yes Hx Depression: Yes - HEMATOLOGY/ONCOLOGY Hx Hematology/Oncology Disorders: No Family Medical History Any Significant Family History?: Yes Hx Cancer: Grandparents Hx Diabetes: Grandparents Hx Heart Disease: Father, Grandparents Physical Exam - General General Appearance: Alert, Oriented x3, Cooperative, No acute distress - Head Head exam: Atraumatic - ENT ENT exam: Normal exam, Mucous membranes moist, Normal external ear exam - Neck Neck exam: Normal inspection - Respiratory Respiratory exam: Normal lung sounds bilaterally. negative: Respiratory distress - Cardiovascular Cardiovascular Exam: Regular rate, Normal rhythm - GI/Abdominal GI/Abdominal exam: Soft, Normal bowel sounds. negative: Tenderness - Extremities Extremities exam: Normal inspection - Back Back exam: Reports: Normal inspection - Neurological Neurological exam: Alert, Normal gait, Oriented X3 - Psychiatric Psychiatric exam: Normal affect, Normal mood - Skin Skin exam: Normal color (Right inguinal area with small folliculitis x 1. 3mm diameter without fluctuance or drainage. Irritated and red. No surrounding erythema. No Inguinal adenopathy. ) Course Vital Signs 10/04/18 07:24 Temperature 97.8 F Pulse Rate 79 Respiratory 20 Rate Blood Pressure 134/83 Pulse Ox 98 - Reevaluation(s) Reevaluation #1: 10/04/18 07:53 Seen and exam with tech at bedside. Folliculitis without abscess. Plan for AB and warm compress with follow up. Disposition Disposition: Discharge Clinical Impression: Folliculitis Disposition: Home, Self-Care Condition: (1) Good Instructions: Folliculitis (ED) Additional Instructions: Warm compresses Take your antibiotic as instructed Recheck with your family doctor in one week Return tot he ED as needed or if worse. Prescriptions: Sulfamethoxazole/Trimethoprim [Bactrim Ds Tablet] 1 each PO BID 7 Days #14 tablet Forms: Patient Portal Access Time of Disposition: 07:50 Quality - Quality Measures Quality Measures: N/A - Blood Pressure Screening Does Patient Have Any of the Following: No Blood Pressure Classification: Pre-Hypertensive BP Reading Systolic Measurement: 134 Diastolic Measurement: 83 Screening for High Blood Pressure: < Pre-Hypertensive BP, F/U Documented > [G8950] Pre-Hypertensive Follow-up Interventions: Follow-up with rescreen every year.
== END 2018-10-04 07:58 | disposition home or self-care (01) ==
LOC: ER 07:15
DX: L73.8 Other specified follicular disorders (principal); E03.9 Hypothyroidism, unspecified; F17.210 Nicotine dependence, cigarettes, uncomplicated
CPT/HCPCS: 99282

== ENCOUNTER 2018-10-22 12:47 | Emergency (ER) | payer MEDICAID ==
--- NOTE | 2018-10-22 13:10 | Emergency Department Record ---
History of Present Illness - General Chief Complaint: Cough Stated Complaint: COUGH Time Seen by Provider: 10/22/18 12:56 Source: Patient Mode of Arrival: Ambulatory Limitations: No limitations - History of Present Illness Initial Comments: The patient is here due to a 2 week hx of cough, congestion, runny nose and nasal discharge. She denies any CP, SOB, JOSIE, or fevers. MD Complaint: Cough, Nasal congestion, Rhinorrhea Onset/Timin -: Week(s) - Related Data Previous Rx's Medication Instructions Recorded Albuterol Sulfate [Proair Hfa] 2 puff IH QID PRN #1 inhaler 10/22/18 Azithromycin [Zithromax] 250 mg PO ASDIR #6 tab 10/22/18 Allergies Allergy/AdvReac Type Severity Reaction Status Date / Time cephalexin monohydrate Allergy Intermediate HIVES Verified 10/04/18 07:27 [From Keflex] doxycycline Allergy Intermediate HIVES Verified 10/04/18 07:27 Latex, Natural Rubber Allergy Intermediate RASH Verified 10/04/18 07:27 Travel Screening - Travel/Exposure Within Last 30 Days Have you traveled within the last 30 days?: Yes Location Detail:: [place] - Travel/Exposure Within Last Year Have you traveled outside the [place] in the last year?: No - Additonal Travel Details Have you been exposed to anyone with a communicable illness?: No - Travel Symptoms Symptom Screening: None Review of Systems Constitutional: Denies: Chills, Fever Eyes: Denies: Eye discharge ENT: Reports: Congestion Respiratory: Reports: Cough. 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 - GI Hx GI Disorders: Yes Hx Abdominal Pain: Yes Hx Reflux: Yes Hx Nausea/Vomiting: Yes - Hx Genitourinary Disorders: Yes Comment:: polycystic ovarian disease - ENDOCRINE Hx Endocrine Disorders: Yes Hx Thyroid Disease: Yes (hypo) - MUSCULOSKELETAL Hx Musculoskeletal Disorders: No - PSYCH Hx Psych Problems: Yes Hx Anxiety: Yes Hx Depression: Yes - HEMATOLOGY/ONCOLOGY Hx Hematology/Oncology Disorders: No Family Medical History Any Significant Family History?: No Hx Cancer: Grandparents Hx Diabetes: Grandparents Hx Heart Disease: Father, Grandparents Physical Exam - General General Appearance: Alert, Oriented x3, Cooperative, No acute distress - Head Head exam: Atraumatic, Normocephalic, Normal inspection - Eye Eye exam: Normal appearance, PERRL, EOMI - ENT ENT exam: Normal exam, Mucous membranes moist, Normal external ear exam, Normal orophraynx Throat exam: Normal inspection. negative: Tonsillar erythema, Tonsillar exudate - Neck Neck exam: Normal inspection, Full ROM. negative: Tenderness - Respiratory Respiratory exam: Normal lung sounds bilaterally. negative: Respiratory distress - Cardiovascular Cardiovascular Exam: Regular rate, Normal rhythm, Normal heart sounds - GI/Abdominal GI/Abdominal exam: Soft, Normal bowel sounds. negative: Tenderness - Extremities Extremities exam: Normal inspection, Full ROM, Normal capillary refill. negative: Tenderness - Neurological Neurological exam: Alert. negative: Motor sensory deficit Course Vital Signs 10/22/18 13:01 Temperature 98.0 F Pulse Rate [ 81 Pulse Ox Probe] Respiratory 16 Rate Blood Pressure 119/85 [Left Arm] Pulse Ox 96 - Reevaluation(s) Reevaluation #1: I did explain to the patient that due the length of the illness we will treat with a Zpak. She is to see her PCP next week for recheck. 10/22/18 13:08 Disposition Disposition: Discharge Clinical Impression: Bronchitis Disposition: Home, Self-Care Condition: (2) Stable Instructions: Acute Bronchitis (ED) Additional Instructions: Please take the Zpak along with the Albuterol inhaller and stop smoking. Please see your doctor next week if not better and return to the ER for any worsening symptoms. Prescriptions: Albuterol Sulfate [Proair Hfa] 2 puff IH QID PRN #1 inhaler PRN Reason: Cough And Difficulty Breathing Azithromycin [Zithromax] 250 mg PO ASDIR #6 tab Forms: Patient Portal Access Time of Disposition: 13:10 Quality - Quality Measures Quality Measures: N/A - Blood Pressure Screening View Details: Yes Does Patient Have Any of the Following: No Blood Pressure Classification: Pre-Hypertensive BP Reading Systolic Measurement: 119 Diastolic Measurement: 85 Screening for High Blood Pressure: < Pre-Hypertensive BP, F/U Documented > [G8950] Pre-Hypertensive Follow-up Interventions: Referral to alternative/primary care provider.
== END 2018-10-22 13:16 | disposition home or self-care (01) ==
LOC: ER 12:47
DX: J20.9 Acute bronchitis, unspecified (principal); F17.210 Nicotine dependence, cigarettes, uncomplicated
CPT/HCPCS: 99283

== ENCOUNTER 2019-03-25 17:31 | Emergency (ER) | payer MEDICAID ==
--- NOTE | 2019-03-25 17:55 | Emergency Department Record ---
History of Present Illness - General Chief complaint: Weakness Stated complaint: FEVER/CHILLS ALL DAY Time Seen by Provider: 03/25/19 17:34 Source: Patient Mode of Arrival: Ambulatory Limitations: No limitations - History of Present Illness Initial comments: 38 yo female presents to ED for evaluation of congestion, myalgias, and "feeling hot". Patient does report that she did receive an influenza vaccination this year, denies sore throat, ear pain or productive cough symptoms on examination. Patient reports "I feel like I'm ". Patient denies health problems at her baseline. MD Complaint: Generalized weakness Onset/Timin -: Days(s) Location: Generalized Severity: Moderate Quality: Aching Consistency: Constant Improves with: None Worsens with: None Associated Symptoms: Denies other symptoms - [place] Coma Scale Eye Response: (4) Open spontaneously Motor Response: (6) Obeys commands Verbal Response: (5) Oriented [place] Total: 15 - Related Data Previous Rx's Medication Instructions Recorded Albuterol Sulfate [Proair Hfa] 2 puff IH QID PRN #1 inhaler 10/22/18 Allergies Allergy/AdvReac Type Severity Reaction Status Date / Time cephalexin monohydrate Allergy Intermediate HIVES Verified 03/25/19 17:54 [From Keflex] doxycycline Allergy Intermediate HIVES Verified 03/25/19 17:54 Latex, Natural Rubber Allergy Intermediate RASH Verified 03/25/19 17:54 Review of Systems Constitutional: Reports: Fever, Malaise. Denies: Chills, Night sweats Eyes: Denies: Eye discharge, Eye pain ENT: Reports: Congestion. Denies: Ear pain, Epistaxis Respiratory: Reports: Cough. Denies: Dyspnea Cardiovascular: Denies: Chest pain, Dyspnea on exertion Endocrine: Reports: Fatigue. Denies: Heat or cold intolerance Gastrointestinal: Denies: Abdominal pain, Nausea, Vomiting Genitourinary: Denies: Incontinence, Retention Musculoskeletal: Denies: Arthralgia, Back pain Skin: Denies: Bruising, Change in color, Rash Neurological: Denies: Abnormal gait, Confusion, Headache, Tingling, Tremors Psychiatric: Denies: Anxiety Hematological/Lymphatic: Denies: Anemia, Blood Clots Past Medical History - SOCIAL HISTORY Smoking Status: Light tobacco smoker (<10/day) Drug Use: None - RESPIRATORY Hx Respiratory Disorders: No - CARDIOVASCULAR Hx Cardio Disorders: No - NEURO Hx Neuro Disorders: Yes Hx of Migraines: Yes 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 - GI Hx GI Disorders: Yes Hx Abdominal Pain: Yes Hx Reflux: Yes Hx Nausea/Vomiting: Yes - Hx Genitourinary Disorders: Yes Comment:: polycystic ovarian disease - ENDOCRINE Hx Endocrine Disorders: Yes Hx Thyroid Disease: Yes (hypo) - MUSCULOSKELETAL Hx Musculoskeletal Disorders: No - PSYCH Hx Psych Problems: Yes Hx Anxiety: Yes Hx Depression: Yes - HEMATOLOGY/ONCOLOGY Hx Hematology/Oncology Disorders: No Family Medical History Hx Cancer: Grandparents Hx Diabetes: Grandparents Hx Heart Disease: Father, Grandparents Physical Exam - General General Appearance: Alert, Oriented x3, Cooperative, No acute distress Limitations: No limitations - Head Head exam: Atraumatic, Normocephalic, Normal inspection Head exam detail: negative: Abrasion, Contusion, Turner's sign, General tenderness, Hematoma, Laceration - Eye Eye exam: Normal appearance. negative: Conjunctival injection, Periorbital swelling, Periorbital tenderness, Scleral icterus - ENT Ear exam: Other (TMs have mild fluid posteriorly, no evidenc for infection on examination). negative: Auricular hematoma, Auricular trauma Nasal Exam: negative: Active bleeding, Discharge, Dried blood, Foreign body Mouth exam: negative: Drooling, Laceration, Muffled voice, Tongue elevation Throat exam: negative: Tonsillar erythema, Tonsillomegaly, R peritonsillar mass, L peritonsillar mass - Neck Neck exam: Normal inspection. negative: Meningismus, Tenderness - Respiratory Respiratory exam: Normal lung sounds bilaterally. negative: Respiratory distress, Rhonchi, Stridor, Wheezes - Cardiovascular Cardiovascular Exam: Regular rate, Normal rhythm, Normal heart sounds - GI/Abdominal GI/Abdominal exam: Soft. negative: Distended, Rebound, Rigid, Tenderness - Rectal Rectal exam: Deferred - exam: Deferred - Extremities Extremities exam: Normal inspection. negative: Pedal edema, Tenderness - Back Back exam: Denies: CVA tenderness (R), CVA tenderness (L) - Neurological Neurological exam: Alert, Normal gait, Oriented X3 - Psychiatric Psychiatric exam: Normal affect, Normal mood - Skin Skin exam: Normal color. negative: Abrasion Type of lesion: negative: abrasion Course - Reevaluation(s) Reevaluation #1: 03/25/19 18:19 Influenza A/B: Negative Patient was updated on all results Symptoms appear c/w viral syndrome Recommended symptomatic care as directed. Disposition Disposition: Discharge Clinical Impression: URI (upper respiratory infection) Qualifiers: URI type: unspecified URI Qualified Code(s): J06.9 - Acute upper respiratory infection, unspecified Disposition: Home, Self-Care Condition: (2) Stable Instructions: Upper Respiratory Infection (ED) Additional Instructions: Return to ED if your symptoms worsen or if you have any concerns. Tylenol, Ibuprofen as needed. Follow-up with your PCP in 3-5 days as directed. Forms: Patient Portal Access Time of Disposition: 18:20 Quality - Quality Measures Quality Measures: N/A - Blood Pressure Screening Does Patient Have Any of the Following: No Blood Pressure Classification: Hypertensive Reading Systolic Measurement: 141 Diastolic Measurement: 95 Screening for High Blood Pressure: < First Hypertensive BP, F/U Documented > [[id number]] First Hypertensive Follow-up Interventions: Referral to alternative/primary care provider.
[2019-03-25 18:17] LABS: INFLUENZA A NEGATIVE (NEGATIVE); INFLUENZA B NEGATIVE (NEGATIVE)
== END 2019-03-25 18:35 | disposition home or self-care (01) ==
LOC: ER 17:31
DX: J06.9 Acute upper respiratory infection, unspecified (principal); R53.1 Weakness; F17.210 Nicotine dependence, cigarettes, uncomplicated
CPT/HCPCS: 87400; 99282